=== PATIENT | male | born 1980 | race Two or more races ===

== ENCOUNTER 2021-05-20 17:36 | Emergency (ER) | payer MEDICAID, OTHER ==
[~2021-05-20] VITALS: Ht 188 cm; Wt 90.7 kg
[2021-05-20 17:36] VITALS: BP 111/63
[2021-05-20] MEDS ORDERED: CEPHALEXIN 250 MG CAP PO ONE (19:30)
[2021-05-20] MEDS ORDERED: TETANUS-DIPTH-ACEL PERTUSSIS 0.5ML SYR Tdap IM ONE (19:30)
[2021-05-20] MEDS ORDERED: BACITRACIN TOP OINT 1 UD PKG TOP ONE (19:30)
[2021-05-20] MEDS ORDERED: FAMOTIDINE 20 MG TAB PO ONE (19:30)
[2021-05-20] MEDS ORDERED: IBUPROFEN 600 MG TAB PO ONE (19:30)
[2021-05-20] MEDS ORDERED: HYDROcodone-ACET 5/325MG TAB PO ONE (19:30)
[2021-05-20] MEDS ORDERED: HYDR1TAB97 PO (21:12)
[2021-05-20] MEDS ORDERED: CEPH-322 PO (21:12)
[2021-05-20] MEDS ORDERED: IBUP600T27 PO (21:12)
== END 2021-05-20 21:38 | disposition home or self-care (01) ==
LOC: ER 17:36
DX: S81.031A Puncture wound without foreign body, right knee, initial encounter (principal); W26.8XXA Contact with other sharp object(s), not elsewhere classified, initial encounter; Y93.89 Activity, other specified; Y92.89 Other specified places as the place of occurrence of the external cause; Y99.0 Civilian activity done for income or pay
CPT/HCPCS: 73562; 90471; 90715